=== PATIENT | male | born 1965 | race Caucasian/White ===

== ENCOUNTER 2020-11-02 14:38 | Inpatient (IN) | payer MEDICAID ==
[~2020-11-02] VITALS: Ht 167.6 cm; Wt 63.5 kg
[2020-11-02] MEDS ORDERED: IV NORMAL SALINE 500 ML BAG IV ONE (15:00)
[2020-11-02] MEDS ORDERED: ASPIRIN 300 MG RECTAL SUPP RC ONE ×2 (15:00→15:18)
--- NOTE | 2020-11-02 15:00 | NUR ---
Pt out of ER for CT.
[2020-11-02] MEDS ORDERED: ASPIRIN 81 MG TAB.CHEW ONE (15:08)
[2020-11-02 15:09] LABS: BASOPHILS # (AUTO) 0.1 K/uL (0.0-8.0); BASOPHILS % (AUTO) 1.1 % (0.0-2.0); EOSINOPHILS # (AUTO) 0.2 K/uL (0.0-0.7); EOSINOPHILS % (AUTO) 2.5 % (0.0-7.0); LYMPHOCYTES % (AUTO) 31.4 % (20.5-51.5); MEAN CORPUSCULAR HEMOGLOBIN 34.6 uug (23.8-33.4); MEAN CORPUSCULAR HGB CONC 33 g/dL (32.5-36.3); MEAN CORPUSCULAR VOLUME 103.7 fL (73.0-96.2); MONOCYTES # (AUTO) 0.6 K/uL (2.0-10.0); MONOCYTES % (AUTO) 9.7 % (0.0-11.0); NEUTROPHILS # (AUTO) 3.6 K/uL (1.8-8.9); NEUTROPHILS % (AUTO) 55.3 % (38.5-71.5); PLATELET COUNT (AUTO) 165 K/uL (152-348); RED BLOOD CELL COUNT(AUTO) 4.05 MIL/uL (4.06-5.63); WHITE BLOOD COUNT (AUTO) 6.4 K/uL (3.6-10.2)
[2020-11-02] MEDS ORDERED: SWABABLE VALVE TRANSFER SET EA MC ONE ×2 (15:09→16:44)
[2020-11-02] MEDS ORDERED: IV NORMAL SALINE 250 ML IV ONE ×2 (15:10→16:44)
[2020-11-02] MEDS ORDERED: IOHEXOL 350 100 ML INFUS..BTL ONE (15:10)
--- NOTE | 2020-11-02 15:15 | NUR ---
Pt back from Ct, BP decreased and pt denies pain at this time. Swallow eval completed and pt passed.
--- NOTE | 2020-11-02 15:17 | NUR ---
RADIOLOGIST CALLED AND TALKED TO KAYLENE LEÓN
--- NOTE | 2020-11-02 15:18 | NUR ---
DR. TORREZ FROM [employer] CALLED AND TALKED TO KAYLENE LEÓN
[2020-11-02 15:20] LABS: CREATININE 0.9 mg/dL (0.6-1.3); POTASSIUM 4.9 mmol/L (3.5-5.1)
[2020-11-02 15:25] LABS: BILIRUBIN,DIRECT 0.3 mg/dL (0.0-0.2)
--- NOTE | 2020-11-02 16:00 | NUR ---
Pt able to stand up and used the urinal. Pt states feeling normal and not dizzy any more. Pt states feeling "normal", and liked to be discharged. Dr Membreno made aware.
--- NOTE | 2020-11-02 17:24 | NUR ---
Pt provided dinner tray, Dr Humberto greenwood
[2020-11-02 17:42] LABS: *AMPHETAMINE, URINE NEGATIVE (NEGATIVE); *CANNABINOID, URINE NEGATIVE (NEGATIVE); *COCCAINE, URINE NEGATIVE (NEGATIVE); *OPIATE, URINE NEGATIVE (NEGATIVE); *PHENCYCLIDINE SCREEN,URINE NEGATIVE (NEGATIVE)
[2020-11-02] MEDS ORDERED: DEXTROSE 50% 50 ML DISP.SYRIN IV PRN (18:45)
[2020-11-02] MEDS ORDERED: hydrALAZINE HCL 20 MG/1 ML VIAL IV PRN (18:45)
[2020-11-02] MEDS ORDERED: ACETAMINOPHEN 325 MG TABLET PO PRN (18:45)
[2020-11-02] MEDS ORDERED: MAG HYDROX/AL HYDROX/SIMETH 30 ML LIQUID UDC PO PRN (18:45)
[2020-11-02 18:59] VITALS: BP 179/83
--- NOTE | 2020-11-02 19:00 | NUR ---
Received patient from ER on a gurney awake, alert and oriented times 4. Patient is stable, no sign of distress noted. initial vitals taken, BP is elevated, Will check eMAR for available orders. Belongings list completed and signed. Safety precautions in place. Will endorse to oncoming nurse.
[2020-11-02 20:00] VITALS: BP 125/63
--- NOTE | 2020-11-02 20:12 | NUR ---
Patient awake ALOx4.Denies chest pain. No s/s of distress noted. on Ra.Per patient he feels much better.Iv on right AC 20g patent and intact.Rechecked BP 125/63.Due meds given.Safety measures in place.Call light with in reach.Will continue to monitor.
[2020-11-02] MEDS: BLOOD SUGAR DIAGNOSTIC 1 EACH STRIP VI SCH (20:32)
[2020-11-02] MEDS: INSULIN REGULAR, HUMAN 300 UNIT/3 ML VIAL SQ PRN (20:38)
[2020-11-02] MEDS: ENOXAPARIN SODIUM 40 MG/0.4 ML DISP.SYRIN SQ SCH (20:42)
[2020-11-03] VITALS: BP 108/62
[2020-11-03 04:00] VITALS: BP 110/64
[2020-11-03 06:13] LABS: BASOPHILS # (AUTO) 0.1 K/uL (0.0-8.0); BASOPHILS % (AUTO) 1.1 % (0.0-2.0); EOSINOPHILS # (AUTO) 0.2 K/uL (0.0-0.7); HEMATOCRIT 40.8 % (36.7-47.1); HEMOGLOBIN 13.3 g/dL (12.5-16.3); LYMPHOCYTES # (AUTO) 2.4 K/uL (20.0-40.0); LYMPHOCYTES % (AUTO) 36.6 % (20.5-51.5); MEAN CORPUSCULAR HEMOGLOBIN 34.2 uug (23.8-33.4); MEAN CORPUSCULAR HGB CONC 33 g/dL (32.5-36.3); MONOCYTES # (AUTO) 0.7 K/uL (2.0-10.0); MONOCYTES % (AUTO) 10.8 % (0.0-11.0); NEUTROPHILS # (AUTO) 3.2 K/uL (1.8-8.9); NEUTROPHILS % (AUTO) 48.5 % (38.5-71.5); PLATELET COUNT (AUTO) 168 K/uL (152-348); RED BLOOD CELL COUNT(AUTO) 3.89 MIL/uL (4.06-5.63); WHITE BLOOD COUNT (AUTO) 6.6 K/uL (3.6-10.2)
[2020-11-03 06:23] LABS: CREATININE 0.8 mg/dL (0.6-1.3); POTASSIUM 5.1 mmol/L (3.5-5.1)
[2020-11-03] MEDS: BLOOD SUGAR DIAGNOSTIC 1 EACH STRIP VI SCH ×4 (06:37→20:32)
[2020-11-03] MEDS: ASPIRIN 81 MG TAB.CHEW PO SCH (08:07)
[2020-11-03] MEDS: DOCUSATE SODIUM 100 MG CAPSULE PO SCH (08:07)
[2020-11-03] MEDS: INSULIN REGULAR, HUMAN 300 UNIT/3 ML VIAL SQ PRN ×4 (08:08→20:32)
[2020-11-03 11:41] VITALS: BP 137/77
--- NOTE | 2020-11-03 13:15 | NUR ---
RECEIVED PATIENT AWAKE, ALERT AND ORIENTED X 4. VSS. NIHSS ASSESSMENT COMPLETED. PATIENT EVALUATED BY PT, OT, SPEECH THERAPY AND SOCIAL WORK. PROVIDED STROKE EDUCATION ESPECIALLY S/S OF STROKE AND WHAT TO DO. TIA EDUCATION HANDOUT PRINTED AND GIVEN TO PATIENT. PATIENT SEEN BY MECHANICAL SYSTEMS DESIGN ENGINEER, SEE MD NOTES FOR NEW ORDERS. NO S/S OF DISTRESS OR SOB NOTED. SAFETY PRECAUTIONS IN PLACE. WILL CONTINUE TO MONITOR.
--- NOTE | 2020-11-03 13:30 | NUR ---
Dope Firer Consultation: 11:15am: Dope Firer consultation completed for transient ischemic attack. Patient is a 55 year old male who came to the ED on 11/02/20 complaining of chest pain, right sided neck pain, elevated BP, and difficulty walking due to dizziness. Patient's medical history includes HTN and DM. SW met with this patient in his hospital room. Patient is awake, alert, oriented x 4, receptive to meeting with this SW. Patient lives with his 85 year old mother at [address] [place] [address], . Patient is independent with all ADL's and ambulation, was previously working at a [employer]. Patient's PCP is Dr. Michele Velázquez [id number] [place] [address], , who patient states he sees regularly. Patient stated that when he began feeling ill yesterday, he called his doctor's office, and they instructed him to go to the ED. Patient stated that he has an appointment with Dr. Velázquez on 11/18, but will call and reschedule for an earlier date, once he gets home from the hospital. Patient's psychosocial needs were assessed, and patient stated that he did not need any resources at this time, as he has support from his family and friends. Patient has presumptive Medi-akua. SW administered the PHQ-9, and patient scored a 0. Patient reported not having any changes in his mood or behavior. SW provided education on the impact health conditions can have on ones mood, and patient was receptive to this information. SW provided patient with educational material: Empowerment after Stroke, Stroke referrals. Patient was receptive to the educational material provided. Discharge plans were discussed, and patient stated that he will be returning home after this hospitalization. Patient stated that his friend Shelton (listed on face sheet) or his niece would be able to pick him up from the hospital. Patient was cooperative throughout this interview, maintained appropriate eye contact. Patient's affect and behavior were WNL. Patient's thought process and content were appropriate, speech was clear. At this time, no further SS interventions are needed. SW will remain available, as needed.
[2020-11-03] MEDS ORDERED: ASPI81TA31 PO (14:35)
[2020-11-03] MEDS ORDERED: INSU100V7 SQ (14:35)
[2020-11-03] MEDS ORDERED: BENA40TA67 PO (14:35)
[2020-11-03] MEDS ORDERED: ATOR10TA PO (14:35)
[2020-11-03] MEDS ORDERED: METF-495 PO (14:35)
[2020-11-03] MEDS ORDERED: CARV6.25 PO (14:35)
[2020-11-03] MEDS ORDERED: SITA100T PO (14:35)
[2020-11-03] MEDS ORDERED: CLOP75TA15 PO (14:35)
[2020-11-03 16:00] VITALS: BP 124/77
[2020-11-03] MEDS: CLOPIDOGREL 75 MG TABLET PO SCH (16:38)
[2020-11-03 20:05] VITALS: BP 137/89
[2020-11-03] MEDS: ENOXAPARIN SODIUM 40 MG/0.4 ML DISP.SYRIN SQ SCH (20:31)
[2020-11-03] MEDS ORDERED: ATORVASTATIN 10 MG TABLET PO SCH (21:00)
--- NOTE | 2020-11-03 21:00 | NUR ---
Received patient resting in bed. AAOX4. No s/s of acute distress noted at this time. Patient on RA denies SOB. Patient c/o dull chest pain 3/10 and headache, denies numbness, tingling, or radiating pain. Will provide PRN and continue to monitor for s/s of worsening chest pain. Right FA IV patent and intact. Safety measures in place, bed locked and in low position.
[2020-11-04] VITALS: BP 103/57
[2020-11-04 04:05] VITALS: BP 104/63
[2020-11-04 06:32] LABS: BASOPHILS % (AUTO) 0.7 % (0.0-2.0); EOSINOPHILS # (AUTO) 0.2 K/uL (0.0-0.7); EOSINOPHILS % (AUTO) 3.7 % (0.0-7.0); HEMATOCRIT 40.8 % (36.7-47.1); HEMOGLOBIN 13.7 g/dL (12.5-16.3); LYMPHOCYTES # (AUTO) 2.4 K/uL (20.0-40.0); LYMPHOCYTES % (AUTO) 40.2 % (20.5-51.5); MEAN CORPUSCULAR HGB CONC 34 g/dL (32.5-36.3); MONOCYTES # (AUTO) 0.7 K/uL (2.0-10.0); MONOCYTES % (AUTO) 10.8 % (0.0-11.0); NEUTROPHILS # (AUTO) 2.7 K/uL (1.8-8.9); NEUTROPHILS % (AUTO) 44.6 % (38.5-71.5); PLATELET COUNT (AUTO) 167 K/uL (152-348); RED BLOOD CELL COUNT(AUTO) 3.92 MIL/uL (4.06-5.63); WHITE BLOOD COUNT (AUTO) 6.1 K/uL (3.6-10.2)
[2020-11-04 06:51] LABS: POTASSIUM 4.8 mmol/L (3.5-5.1)
[2020-11-04] MEDS: BLOOD SUGAR DIAGNOSTIC 1 EACH STRIP VI SCH ×3 (06:52→17:24)
--- NOTE | 2020-11-04 06:53 | NUR ---
Patient resting in bed. Denies chest pain at this time. Vital signs stable. Tele monitor in place, sinus rhythm. All patient needs were met and attended to. Safety measures in place and will endorse to oncoming shift
[2020-11-04 08:00] VITALS: BP_SYST 101; BP_SYST 146; BP_DIAS 66; BP_DIAS 91
--- NOTE | 2020-11-04 08:00 | NUR ---
received change of shift report. pt in bed resting awake alert and oriented x4, pt NSR on tele monitor. Pt on room air saturating at 100%. pt has steady gait, BRP. IV access on the right AC 20g saline lock, patent and intact. pt cooperative, bed in low and locked position, no reports of pain no signs of distress, call light within reach, will continue with plan of care.
[2020-11-04] MEDS: ASPIRIN 81 MG TAB.CHEW PO SCH (08:26)
[2020-11-04] MEDS: CLOPIDOGREL 75 MG TABLET PO SCH (08:26)
[2020-11-04] MEDS: DOCUSATE SODIUM 100 MG CAPSULE PO SCH (08:26)
[2020-11-04] MEDS: INSULIN REGULAR, HUMAN 300 UNIT/3 ML VIAL SQ PRN ×3 (08:31→17:56)
[2020-11-04] MEDS ORDERED: METF-440 PO (10:53)
[2020-11-04] MEDS ORDERED: LISI10TA29 PO (10:53)
[2020-11-04 11:31] VITALS: BP 106/70
[2020-11-04 16:00] VITALS: BP 136/86
[2020-11-04] MEDS ORDERED: PNEUMOCOCCAL 23-VAL P-SAC VAC 0.5 ML VIAL IM ONE (16:00)
[2020-11-04] MEDS ORDERED: CARVEDILOL 6.25 MG TABLET PO SCH (18:00)
[2020-11-04] MEDS ORDERED: METFORMIN HCL 500 MG TABLET PO SCH (18:00)
[2020-11-04 18:01] VITALS: BP 136/86
--- NOTE | 2020-11-04 18:40 | NUR ---
pt discharged home with all belongings, paperwork and prescriptions, IV removed, ID band removed. Pt left via wheelchair to private car. pt ambulatory, cooperative in pleasant mood. pt alert and orientedx4, no reports fo pain, no signs of distress noted, on room air. Tele monitor removed.
[2020-11-04] MEDS ORDERED: ATORVASTATIN 10 MG TABLET PO SCH (21:00)
[2020-11-05] MEDS ORDERED: CLOPIDOGREL 75 MG TABLET PO SCH (09:00)
[2020-11-05] MEDS ORDERED: LISINOPRIL 10 MG TABLET PO SCH (09:00)
[2020-11-05] MEDS ORDERED: LINAGLIPTIN 5 MG TABLET PO SCH (09:00)
[2020-11-05] MEDS ORDERED: ASPIRIN 81 MG TAB.CHEW PO SCH (09:00)
[2020-11-05] MEDS ORDERED: BENAZEPRIL PO SCH (09:00)
[2020-11-05] MEDS ORDERED: Medication Not On Formulary EA (Sitagliptin Phosphate (Januvia) 100 MG) PO SCH (09:00)
== END 2020-11-04 18:40 | disposition home or self-care (01) | DRG 45 ==
LOC: ER 14:38 → MEDSURG3 18:23 → TELE3 19:15
PROVIDERS: ADMIT Nurse Practitioner Acute Care; ATTEND Nurse Practitioner Acute Care
DX: I63.9 Cerebral infarction, unspecified (principal); I16.0 Hypertensive urgency; R29.700 NIHSS score 0; R26.81 Unsteadiness on feet; I10 Essential (primary) hypertension; I25.2 Old myocardial infarction; R07.9 Chest pain, unspecified; D68.69 Other thrombophilia; E11.65 Type 2 diabetes mellitus with hyperglycemia; Z79.84 Long term (current) use of oral hypoglycemic drugs; E86.0 Dehydration; R40.2362 Coma scale, best motor response, obeys commands, at arrival to emergency department; R40.2142 Coma scale, eyes open, spontaneous, at arrival to emergency department; R40.2252 Coma scale, best verbal response, oriented, at arrival to emergency department; Z20.822 Contact with and (suspected) exposure to COVID-19
CPT/HCPCS: 36415; 70030-TC; 70450; 70496; 71045; 83605; 84443; 85025; 85730; 87040; 90732; 93005; 93307; 93880; A4663; G0378; J1650; J1815; J7040; J7050; Q9967